=== PATIENT | male | born 1990 | race Two or more races ===

== ENCOUNTER 2021-01-02 23:41 | Emergency (ER) | payer SELFPAY ==
[~2021-01-02] VITALS: Ht 167.6 cm; Wt 70.3 kg
[2021-01-02 23:53] VITALS: BP 124/77
== END 2021-01-03 03:03 | disposition left against medical advice (07) ==
LOC: ER 23:41
DX: R56.9 Unspecified convulsions (principal); R20.2 Paresthesia of skin; R51.9 Headache, unspecified; M54.2 Cervicalgia; Z53.21 Procedure and treatment not carried out due to patient leaving prior to being seen by health care provider